=== PATIENT | male | born 1985 | race Hispanic/Latino ===

== ENCOUNTER 2021-04-03 09:01 | Emergency (ER) | payer SELFPAY ==
[2021-04-03 09:29] LABS: Absolute Lymphocytes (CBC) 2.2 K/uL (0.7-4.9); Basophils % 1.2 % (0-1.3); Hematocrit 43.7 % (39.6-49.0); Lymphocytes % 29.5 % (15.3-44.8); MPV 10.4 fL (7.6-11.3); RBC Red Blood Cell Count 4.83 M/uL (4.33-5.43)
[2021-04-03 09:30] LABS: Protime INR 1.08
[2021-04-03 09:59] LABS: Albumin 3.5 g/dL (3.4-5.0); Bilirubin Direct 0.1 mg/dL (0-0.2); Bilirubin Total 0.4 mg/dL (0.2-1.0); Protein, Total 7.1 g/dL (6.4-8.2); Troponin (Emerg Dept Use Only) 0.02 ng/mL (0.0-0.045)
--- NOTE | 2021-04-03 10:18 | RAD REPORT ---
EXAM DESCRIPTION: RAD - Chest Single View - 04/03/2021 9:52 am CLINICAL HISTORY: CHEST PAIN COMPARISON: None TECHNIQUE: AP portable chest image was obtained 04/03/2021 9:52 am . FINDINGS: Lungs are clear. Heart and vasculature are normal. No measurable pleural effusion and no p neumothorax. No acute bony abnormality seen. No acute aortic findings suspected. IMPRESSION: No acute cardiopulmonary process.
[2021-04-03 10:30] LABS: Magnesium 2.1 mg/dL (1.8-2.4); Potassium 3.7 mmol/L (3.5-5.1)
[2021-04-03] MEDS ORDERED: KETOROLAC 30 MG/ML INJ ONE (11:03)
--- NOTE | 2021-04-03 14:23 | ER ---
Nurse's Notes [facility] Name: León Vargas Age: 35 yrs Sex: Male : 1985 Arrival Date: 04/03/2021 Time: 09:04 Bed 2 Private MD: Diagnosis: Chest pain, unspecified Presentation: 04/03 09:04 Chief complaint: Patient states: L sided CP for 1 day, radiates down L arm. VSS for ll1 EMS. Coronavirus screen: Vaccine status: Patient reports receiving the 2nd dose of the covid vaccine. Client denies travel out of the [place] in the last 14 days. Ebola Screen: Patient denies travel to an Ebola-affected area in the 21 days before illness onset. Risk Assessment: Do you want to hurt yourself or someone else?. Onset of symptoms was April 03, 2021. 09:04 Method Of Arrival: EMS ll1 09:04 Acuity: VIKA 3 ll1 14:39 Initial Sepsis Screen: Does the patient meet any 2 criteria? No. Patient's initial ll1 sepsis screen is negative. Does the patient have a suspected source of infection? No. Patient's initial sepsis screen is negative. Triage Assessment: 09:10 General: Appears in no apparent distress. Behavior is calm, cooperative, appropriate ll1 for age. Pain: Complains of pain in L chest Quality of pain is described as aching, Aggravated by deep breathing. Neuro: No deficits noted. Cardiovascular: Reports chest pain, Heart tones S1 S2 Capillary refill < 3 seconds Clubbing of nail beds is absent JVD is absent Patient's skin is warm and dry. Rhythm is regular. Musculoskeletal: Circulation, motion, and sensation intact. Capillary refill < 3 seconds, Reports pain in left arm. Historical: - Allergies: 09:04 No Known Allergies; ll1 - PMHx: 09:04 None; ll1 - Immunization history:: Client reports having NOT received the Covid vaccine. - Social history:: Smoking status: Patient denies any tobacco usage or history of. Screenin:10 Abuse screen: Denies threats or abuse. Nutritional screening: No deficits noted. ll1 Tuberculosis screening: No symptoms or risk factors identified. Fall Risk IV access (20 points). Total Guy Fall Scale indicates No Risk (0-24 pts). Assessment: 10:10 Reassessment: No changes from previously documented assessment. Patient and/or family ll1 updated on plan of care and expected duration. Pain level reassessed. Patient is alert, oriented x 3, equal unlabored respirations, skin warm/dry/pink. 11:00 Reassessment: No changes from previously documented assessment. Patient and/or family ll1 updated on plan of care and expected duration. Pain level reassessed. Patient is alert, oriented x 3, equal unlabored respirations, skin warm/dry/pink. 12:00 Reassessment: No changes from previously documented assessment. Patient and/or family ll1 updated on plan of care and expected duration. Pain level reassessed. Patient is alert, oriented x 3, equal unlabored respirations, skin warm/dry/pink. 13:00 Reassessment: No changes from previously documented assessment. Patient and/or family ll1 updated on plan of care and expected duration. Pain level reassessed. Patient is alert, oriented x 3, equal unlabored respirations, skin warm/dry/pink. 14:00 Reassessment: No changes from previously documented assessment. Patient and/or family ll1 updated on plan of care and expected duration. Pain level reassessed. Patient is alert, oriented x 3, equal unlabored respirations, skin warm/dry/pink. 14:38 Reassessment: No changes from previously documented assessment. Patient and/or family ll1 updated on plan of care and expected duration. Pain level reassessed. Patient is alert, oriented x 3, equal unlabored respirations, skin warm/dry/pink. Vital Signs: 09:10 BP 123 / 86; Pulse 73; Resp 17; Temp 97.9; Pulse Ox 99% ; Pain 2/10; ll1 14:35 BP 129 / 86; Pulse 77; Resp 16; Pulse Ox 100% ; Pain 0/10; ll1 ED Course: 09:04 Patient arrived in ED. eb 09:04 Wes Billy RN is Primary Nurse. ll1 09:04 Wilbert Durand NP is PHCP. pm1 09:04 Henry Reyes MD is Attending Physician. pm1 09:04 Arm band placed on Patient placed in an exam room, on a stretcher. ll1 09:05 Triage completed. ll1 09:10 No provider procedures requiring assistance completed. Maintain EMS IV. Dressing ll1 intact. Good blood return noted. Site clean \T\ dry. Gauge \T\ site: 20 G L AC. 09:11 Patient has correct armband on for positive identification. Bed in low position. Call ll1 light in reach. Side rails up X 1. library monitor on. Pulse ox on. NIBP on. 09:52 XRAY Chest (1 view) In Process Unspecified. EDMS 13:37 Troponin (emerg Dept Use Only): Draw at 1100 Sent. 1 14:36 IV discontinued, intact, bleeding controlled, No redness/swelling at site. Pressure ll1 dressing applied. Administered Medications: 11:08 Drug: Ketorolac 30 mg Route: IVP; Site: left antecubital; 1 14:39 Follow up: Response: No adverse reaction 1 Outcome: 14:23 Discharge ordered by . pm1 14:39 Discharged to home ambulatory. ll1 14:39 Condition: stable 14:39 Discharge instructions given to patient, Instructed on discharge instructions, follow up and referral plans. Demonstrated understanding of instructions, follow-up care. 14:39 Patient left the ED. 1 Signatures: Dispatcher [employer] EDMS Wilbert Durand, RICHI GUTTER HANGER pm1 Latesha Mojica Lynsay, RN RN ll1
--- NOTE | 2021-04-03 14:24 | EDPHYS ---
Physician Documentation [facility] Name: León Vargas Age: 35 yrs Sex: Male : 1985 Arrival Date: 04/03/2021 Time: 09:04 Bed 2 Private MD: ED Physician Henry Reyes HPI: 04/03 09:13 This 35 yrs old Male presents to ER via EMS with complaints of Chest pain. pm1 09:13 The patient or guardian reports chest pain that is located primarily in the anterior pm1 chest wall, left. The pain does not radiate. Associated signs and symptoms: The patient has no apparent associated signs or symptoms, Pertinent negatives: abdominal pain, cough, diaphoresis, dizziness, headache, nausea, shortness of breath, vomiting. The chest pain is described as pulsating and then sharp with deep inspiration. Duration: The patient or guardian reports a single episode, that is still ongoing. Modifying factors: the symptoms are aggravated by deep breath. Severity of pain: in the emergency department the pain is a 2 / 10. EMS care prior to arrival includes: aspirin, nitroglycerin, x 1, no change in symptoms except headache now. The patient has not experienced similar symptoms in the past. The patient has not recently seen a physician. 09:13 Onset 0500 this AM. pm1 Historical: - Allergies: 09:04 No Known Allergies; ll1 - PMHx: 09:04 None; ll1 - Immunization history:: Client reports having NOT received the Covid vaccine. - Social history:: Smoking status: Patient denies any tobacco usage or history of. ROS: 09:13 Constitutional: Negative for fever, chills, and weight loss. pm1 09:13 Respiratory: Negative for shortness of breath, cough, wheezing, and pleuritic chest pain, Abdomen/GI: Negative for abdominal pain, nausea, vomiting, diarrhea, and constipation, Back: Negative for injury and pain, MS/Extremity: Negative for injury and deformity, Skin: Negative for injury, rash, and discoloration, Neuro: Negative for headache, weakness, numbness, tingling, and seizure. 09:13 Cardiovascular: Positive for chest pain, Negative for edema. 09:13 All other systems are negative. Exam: 09:13 Constitutional: This is a well developed, well nourished patient who is awake, alert, pm1 and in no acute distress. Head/Face: Normocephalic, atraumatic. 09:13 Skin: Warm, dry with normal turgor. Normal color with no rashes, no lesions, and no evidence of cellulitis. MS/ Extremity: Pulses equal, no cyanosis. Neurovascular intact. Full, normal range of motion. 09:13 Eyes: Exam is negative for acute changes, Extraocular movements: no acute changes, Conjunctiva: no acute changes, no injection, Sclera: no acute changes, icterus, is not appreciated. 09:13 Cardiovascular: Exam negative for acute changes, Rate: normal, Rhythm: regular, Pulses: no pulse deficits are appreciated. 09:13 Respiratory: Exam negative for acute changes, the patient does not display signs of respiratory distress, Respirations: normal, Breath sounds: are clear throughout. 09:13 Abdomen/GI: Exam negative for acute changes, Inspection: abdomen appears normal, Palpation: abdomen is soft and non-tender, in all quadrants. 09:13 Neuro: Exam negative for acute changes, Orientation: is normal, Mentation: is normal, Motor: is normal, moves all fours, Sensation: is normal, no obvious gross deficits, seizure activity, is not displayed by the patient. Vital Signs: 09:10 BP 123 / 86; Pulse 73; Resp 17; Temp 97.9; Pulse Ox 99% ; Pain 2/10; ll1 14:35 BP 129 / 86; Pulse 77; Resp 16; Pulse Ox 100% ; Pain 0/10; ll1 MDM: 09:04 Patient medically screened. pm1 09:24 Data reviewed: vital signs. Data interpreted: Pulse oximetry: on room air is 99 %. pm1 Interpretation: normal. 04/03 09:13 Order name: Basic Metabolic Panel; Complete Time: 10:31 pm1 04/03 09:13 Order name: CBC with Diff; Complete Time: 09:39 pm1 04/03 09:13 Order name: LFT's; Complete Time: 10:31 pm1 04/03 09:13 Order name: Magnesium; Complete Time: 10:31 pm1 04/03 09:13 Order name: NT PRO-BNP; Complete Time: 10:31 pm1 04/03 09:13 Order name: PT-INR; Complete Time: 09:33 pm1 04/03 09:13 Order name: Troponin (emerg Dept Use Only); Complete Time: 10:31 pm1 04/03 09:13 Order name: XRAY Chest (1 view); Complete Time: 10:19 pm1 04/03 09:13 Order name: EKG; Complete Time: 09:14 pm1 04/03 09:13 Order name: Cardiac monitoring; Complete Time: 09:38 pm1 04/03 09:13 Order name: EKG - Nurse/Tech; Complete Time: 09:38 pm1 04/03 10:50 Order name: Troponin (emerg Dept Use Only): Draw at 1100 pm1 04/03 10:50 Order name: Troponin (Emerg Dept Use Only); Complete Time: 14:20 EDMS 04/03 09:13 Order name: IV Saline Lock; Complete Time: 09:37 pm1 04/03 09:13 Order name: Labs collected and sent; Complete Time: 09:37 pm1 04/03 09:13 Order name: O2 Per Protocol; Complete Time: 09:37 pm1 04/03 09:13 Order name: O2 Sat Monitoring; Complete Time: 09:37 pm1 Administered Medications: 11:08 Drug: Ketorolac 30 mg Route: IVP; Site: left antecubital; ll1 14:39 Follow up: Response: No adverse reaction ll1 Disposition: 15:47 Co-signature as Attending Physician, Henry Reyes MD I agree with the assessment and kdr plan of care. Disposition Summary: 04/03/21 14:23 Discharge Ordered Location: Home pm1 Problem: new pm1 Symptoms: have improved pm1 Condition: Stable pm1 Diagnosis - Chest pain, unspecified pm1 Followup: pm1 - With: Emergency Department - When: As needed - Reason: Worsening of condition Followup: pm1 - With: Private Physician - When: 2 - 3 days - Reason: Recheck today's complaints, Continuance of care, Re-evaluation by your physician Discharge Instructions: - Discharge Summary Sheet pm1 - Nonspecific Chest Pain, Adult pm1 Forms: - Medication Reconciliation Form pm1 - Thank You Letter pm1 - Antibiotic Education pm1 - Prescription Opioid Use pm1 Signatures: Dispatcher [employer] EDHenry Aponte MD MD kdr Marinas, Patrick, NP PUMPER GAGER pm1 Wes Billy RN RN ll1
[2021-04-03 14:44] VITALS: TEMP 97.9
[2021-04-03 14:46] VITALS: BP 129/86; O2SAT 100
== END 2021-04-03 14:39 | disposition home or self-care (01) ==
LOC: ER 09:01
DX: R07.9 Chest pain, unspecified (principal)
CPT/HCPCS: 36415; 71045; 80048; 80076; 83735; 83880; 84484; 85025; 85610; 93005; 96374; 99284